=== PATIENT | female | born 1950 | race Caucasian/White ===

== ENCOUNTER 2016-06-30 12:35 | Outpatient (CLI) | payer OTHER ==
[2016-06-30 13:23] LABS: ALT (SGPT) 16 U/L (0-55); AST (SGOT) 14 U/L (5-34); Alkaline Phosphatase 55 U/L (40-150); Anion Gap 14 mmol/L (10-20); BUN (Urea Nitrogen) 12 mg/dL (9.8-20.1); Bilirubin, Total 0.6 mg/dL (0.2-1.2); Calc. Creatinine Clearance 0 mL/min (70-130); Calcium 8.7 mg/dL (7.8-10.44); Carbon Dioxide 25 mmol/L (23-31); Cardiac Risk 4.5 (Less than 4.5); Chloride 107 mmol/L (98-107); Cholesterol 255 mg/dL (< 200 Desired); Estimated GFR-MDRD 74; Globulin 2.2 g/dL (2.4-3.5); Glucose 98 mg/dL (80-115); HDL Cholesterol 57 mg/dL (>60 Neg Risk); LDL Cholesterol, Calculated 170 mg/dL; Potassium 4.3 mmol/L (3.5-5.1); Protein, Total 6.2 g/dL (5.8-8.1); Sodium 142 mmol/L (136-145); Triglycerides 142 mg/dL (Less than 150)
== END 2016-06-30 12:36 | disposition home or self-care (01) ==
LOC: NAV LAB 12:35
PROVIDERS: ATTEND Family Medicine
DX: I10 Essential (primary) hypertension (principal)
CPT/HCPCS: 36415; 80053; 80061